=== PATIENT | female | born 1970 | race Caucasian/White ===

== ENCOUNTER 2022-01-10 14:54 | Outpatient (CLI) | payer BC | END 2022-01-10 14:55 | disposition home or self-care (01) | LOC: CSHMAMMO 14:54 | PROVIDERS: ATTEND Family Medicine | DX: Z12.31 Encounter for screening mammogram for malignant neoplasm of breast (principal); Z80.3 Family history of malignant neoplasm of breast | CPT/HCPCS: 77063; 77067 ==

== ENCOUNTER 2024-07-17 20:00 | Emergency (ER) | payer BC ==
[2024-07-17] MEDS ORDERED: Acetaminophen 500 MG TAB ONE (22:05)
== END 2024-07-17 22:17 | disposition left against medical advice (07) ==
LOC: CSHERS 20:00
DX: S06.0X0A Concussion without loss of consciousness, initial encounter (principal); I10 Essential (primary) hypertension; W01.0XXA Fall on same level from slipping, tripping and stumbling without subsequent striking against object, initial encounter
CPT/HCPCS: 70450